=== PATIENT | female | born 1995 | race Caucasian/White ===

== ENCOUNTER 2021-12-30 21:26 | Emergency (ER) | payer SELFPAY ==
[2021-12-30] MEDS ORDERED: KETOROLAC 30 MG/ML INJ ONE (23:47)
--- NOTE | 2021-12-30 23:47 | EDPHYS ---
Physician Documentation [facility] Name: Karina Anderson Age: 26 yrs Sex: Female : 1995 Arrival Date: 12/30/2021 Time: :27 Bed 19 Private MD: ED Physician Zheng Bone HPI: 12/30 23:47 This 26 yrs old Female presents to ER via Ambulatory with complaints of Back Pain. kb 22:29 The patient presents with pain that is acute, with no known mechanism of injury. The kb symptoms are located in the left subscapular area. Onset: The symptoms/episode began/occurred yesterday. The pain does not radiate. Associated signs and symptoms: The patient has no apparent associated signs or symptoms. The problem was sustained without known cause. Modifying factors: The patient symptoms are alleviated by nothing, the patient symptoms are aggravated by deep breath. Severity of symptoms: At their worst the symptoms were moderate, in the emergency department the symptoms are unchanged. The patient has not experienced similar symptoms in the past. The patient has not recently seen a physician. Pt reports pain under left scapula that started yesterday. States it is worse when she moves in certain positions and when she takes a deep breath. 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 - Social history:: Smoking status: Patient denies any tobacco usage or history of. ROS: 22:28 Constitutional: Negative for fever, chills, and weight loss. kb 22:28 Back: Positive for pain at rest, pain with movement, of the left subscapular area. 22:28 All other systems are negative. Exam: 22:27 Constitutional: This is a well developed, well nourished patient who is awake, alert, kb and in no acute distress. Head/Face: Normocephalic, atraumatic. ENT: Moist Mucous membranes Cardiovascular: Regular rate and rhythm with a normal S1 and S2. No gallops, murmurs, or rubs. No pulse deficits. Respiratory: Respirations even and unlabored. No increased work of breathing. Talking in full sentences Abdomen/GI: Soft, non-tender. No distention Back: No spinal tenderness. No costovertebral tenderness. Full range of motion. Skin: Warm, dry with normal turgor. Normal color. MS/ Extremity: Pulses equal, no cyanosis. Neurovascular intact. Full, normal range of motion. Neuro: Awake and alert, GCS 15, oriented to person, place, time, and situation. Moves all extremities. Normal gait. Psych: Awake, alert, with orientation to person, place and time. Behavior, mood, and affect are within normal limits. : ECG was reviewed by the Attending Physician. Vital Signs: 21:37 BP 139 / 78; Pulse 88; Resp 17; Temp 98.1(TE); Pulse Ox 99% ; Weight 86.18 kg; Height 5 ab2 ft. 8 in. (172.72 cm); Pain /; 12/31 00:09 BP 129 / 81; Pulse 85; Resp 19; Pulse Ox 100% on R/A; sm5 12/30 21:37 Body Mass Index 28.89 (86.18 kg, 172.72 cm) ab2 MDM: 12/30 21:51 Patient medically screened. kb 22:28 Data reviewed: vital signs, nurses notes. Data interpreted: Pulse oximetry: on room air kb is 99 %. Interpretation: normal. Counseling: I had a detailed discussion with the patient and/or guardian regarding: the historical points, exam findings, and any diagnostic results supporting the discharge/admit diagnosis, radiology results, the need for outpatient follow up, a family practitioner, to return to the emergency department if symptoms worsen or persist or if there are any questions or concerns that arise at home. 12/30 22:03 Order name: Chest Single View XRAY kb 12/30 22: Order name: EKG; Complete Time: 22:08 kb 12/30 22:03 Order name: EKG - Nurse/Tech; Complete Time: 22: kb EC:27 Rate is 74 beats/min. Rhythm is regular. QRS Murray is Normal. WA interval is normal at kb 172 msec. QRS interval is normal at 102 msec. QT interval is normal at 408 msec. Administered Medications: 23:58 Drug: Ketorolac 30 mg Route: IM; Site: right deltoid; [facility] 12/31 00:10 Follow up: Response: Medication administered at discharge. [facility] 12/30 23:58 Drug: Lidoderm Patch 5 % (700 mg/patch) 1 patches {Note: back.} Route: Topical; Site: [facility] affected area; 12/31 00:10 Follow up: Response: Medication administered at discharge. [facility] Disposition: 01:17 Co-signature as Attending Physician, Zheng Bone MD. 7 Disposition Summary: 12/30/21 23:46 Discharge Ordered Location: Home Condition: Stable kb Diagnosis - upper left back pain kb Followup: kb - With: Emergency Department - When: As needed - Reason: Worsening of condition Followup: kb - With: Private Physician - When: 2 - 3 days - Reason: Recheck today's complaints, Continuance of care, Re-evaluation by your physician Discharge Instructions: - Discharge Summary Sheet kb - Acute Back Pain, Adult kb Forms: - Medication Reconciliation Form kb - Thank You Letter kb - Antibiotic Education kb - Prescription Opioid Use kb Signatures: Dispatcher [employer] EDMS Nelida [place], FISHER TRAMMEL NET-C FISHER TR[employer] NET-Ckb Zheng Bone MD MD [facility] Marcy Foley, RN RN 5 Hardeep Cardona2 Corrections: (The following items were deleted from the chart) 12/30 22:41 22:29 This 26 yrs old Female presents to ER via Ambulatory with complaints of Back sb3 Pain. kb
--- NOTE | 2021-12-30 23:47 | ER ---
Nurse's Notes [facility] Name: Karina Anderson Age: 26 yrs Sex: Female : 1995 Arrival Date: 12/30/2021 Time: : Bed 19 Private MD: Diagnosis: upper left back pain Presentation: 12/30 21:37 Chief complaint: Patient states: "I have a super sharp pain that is right under my left ab2 shoulder blade. it hurts to take a deep breath and to lay down. I just wanted to make sure it wasn't heart related." Pt denies any known injury. Coronavirus screen: Vaccine status: Patient reports receiving the 2nd dose of the covid vaccine. Client denies travel out of the [place] in the last 14 days. At this time, the client does not indicate any symptoms associated with coronavirus-19. Ebola Screen: Patient negative for fever greater than or equal to 101.5 degrees Fahrenheit, and additional compatible Ebola Virus Disease symptoms Patient denies exposure to infectious person. Patient denies travel to an Ebola-affected area in the 21 days before illness onset. No symptoms or risks identified at this time. Initial Sepsis Screen: Does the patient meet any 2 criteria? No. Patient's initial sepsis screen is negative. Does the patient have a suspected source of infection? No. Patient's initial sepsis screen is negative. Risk Assessment: Do you want to hurt yourself or someone else? Patient reports no desire to harm self or others. Onset of symptoms is unknown. 21:37 Method Of Arrival: Ambulatory ab2 21:37 Acuity: JAYLA 3 ab2 Triage Assessment: 21:40 General: Appears in no apparent distress. uncomfortable, Behavior is calm, cooperative, ab2 appropriate for age. Pain: Complains of pain in left subscapular area. Musculoskeletal: Range of motion: intact in all extremities. 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 - Social history:: Smoking status: Patient denies any tobacco usage or history of. Screenin:50 Abuse screen: Denies threats or abuse. Denies injuries from another. Nutritional sm5 screening: No deficits noted. Tuberculosis screening: No symptoms or risk factors identified. Fall Risk None identified. Assessment: 22:25 General: Appears in no apparent distress. Behavior is cooperative. Pain: Complains of sm5 pain in back and left subscapular area. Neuro: No deficits noted. Level of Consciousness is awake, alert, obeys commands, Oriented to person, place, time, situation. Cardiovascular: No deficits noted. Capillary refill < 3 seconds Patient's skin is warm and dry. Respiratory: No deficits noted. Airway is patent Trachea midline Respiratory effort is even, unlabored. 23:37 Reassessment: No changes from previously documented assessment. Patient and/or family sm5 updated on plan of care and expected duration. Pain level reassessed. Vital Signs: 21:37 BP 139 / 78; Pulse 88; Resp 17; Temp 98.1(TE); Pulse Ox 99% ; Weight 86.18 kg; Height 5 ab2 ft. 8 in. (172.72 cm); Pain /; 12/31 00:09 BP 129 / 81; Pulse 85; Resp 19; Pulse Ox 100% on R/A; sm5 12/30 21:37 Body Mass Index 28.89 (86.18 kg, 172.72 cm) ab2 ED Course: 12/30 21:27 Patient arrived in ED. kc5 21:39 Triage completed. ab2 21:40 Arm band placed on left wrist. ab2 21:48 Marcy Foley RN is Primary Nurse. sm5 21:51 Nelida [place] FNP-C [facility]. kb 21:51 Zheng Bone MD is Attending Physician. kb 22:49 X-ray completed. Portable x-ray completed in exam room. Patient tolerated procedure mh1 well. 22:50 Patient has correct armband on for positive identification. Bed in low position. Call sm5 light in reach. Side rails up X2. 22:52 Chest Single View XRAY In Process Unspecified. EDMS 12/31 00:10 No provider procedures requiring assistance completed. Patient did not have IV access sm5 during this emergency room visit. Administered Medications: 12/30 23:58 Drug: Ketorolac 30 mg Route: IM; Site: right deltoid; sm5 12/31 00:10 Follow up: Response: Medication administered at discharge. sm5 12/30 23:58 Drug: Lidoderm Patch 5 % (700 mg/patch) 1 patches {Note: back.} Route: Topical; Site: sm5 affected area; 12/31 00:10 Follow up: Response: Medication administered at discharge. sm5 Outcome: 12/30 23:46 Discharge ordered by . cinthia 12/31 00:10 Discharged to home ambulatory. sm5 Condition: stable Discharge instructions given to patient, Instructed on discharge instructions, follow up and referral plans. Demonstrated understanding of instructions, follow-up care. 00:10 Patient left the ED. sm5 Signatures: Dispatcher [employer] EDMS Nelida [place], RUBIOC CLIENT PROJECT COORDINATOR-CkCara Burrows 1 Saritha Vega 5 Marcy Foley, RN RN 5 Hardeep Cardona ab2 Corrections: (The following items were deleted from the chart) 12/30 21:40 21:37 Chief complaint: Patient states: "I have a super sharp pain that is right under ab2 my left shoulder blade. it hurts to take a deep breath and to lay down. I just wanted to make sure it wasn't heart related." ab2
[2021-12-30] MEDS ORDERED: LIDOCAINE 4% PATCH ONE (23:49)
[2021-12-31 00:58] VITALS: BP 129/81; O2SAT 100
[2021-12-31 01:13] VITALS: TEMP 98.1
--- NOTE | 2022-01-01 09:28 | EKG ---
Test Date: 2021-12-30 Test Time: 22:22:27 Door To Door Selling Agent: FRANSISCO MEASUREMENT RESULTS: Intervals: Rate: 74 SD: 172 QRSD: 102 QT: 408 QTc: 452 Baskin: P: 40 SD: 172 QRS: 66 T: 33 INTERPRETIVE STATEMENTS: Normal sinus rhythm with sinus arrhythmia Normal ECG No previous ECG available for comparison Electronically Signed On 01-01-22 09:25:54 CDT by Abdi Benitez
--- NOTE | 2022-01-01 09:48 | RAD REPORT ---
EXAM DESCRIPTION: RAD - Chest Single View - 12/30/2021 10:50 pm CLINICAL HISTORY: CHEST PAIN COMPARISON: None. TECHNIQUE: Chest 1 View AP FINDINGS: Trachea midline. Heart size and pulmonary vessels within normal limits. Lungs clear without evidence of consolidation, mass, or significant pulmonary edema. No significant pleural effusion or pneumothorax. Mild symmetric bilateral lower lungs/chest density most likely represents overlying breast/chest wall attenuation artifact. Bones unremarkable. IMPRESSION: Unremarkable chest radiograph. Electronically signed by: Steven Segura MD 12/30/2021 11:34 PM CDT Due to temporary technical issues with the PACS/Fluency reporting system, reports are being signed by the in house radiologist without review as a courtesy to ensure prompt reporting. The interpreting r adiologist is fully responsible for the content of the report.
== END 2021-12-31 00:10 | disposition home or self-care (01) ==
LOC: ER 21:26
DX: M54.6 Pain in thoracic spine (principal)
CPT/HCPCS: 71045; 93005; 96372; 99283